=== PATIENT | female | born 1990 | race Caucasian/White ===

== ENCOUNTER 2023-11-21 11:55 | Outpatient (CLI) | payer OTHER, SELFPAY ==
--- NOTE | 2023-11-21 12:04 | ECG_ITS ---
Test Date: 2023-11-21 12:08:35 Measurements Intervals [place] Rate: 47 P: 54 NV: 150 QRS: 69 QRSD: 80 T: 34 QT: 433 QTc: 383 Interpretive Statements SINUS BRADYCARDIA POSSIBLE LEFT ATRIAL ENLARGEMENT POSSIBLE RIGHT VENTRICULAR CONDUCTION DELAY BORDERLINE ST ABNORMALITY- INFERIOR LEADS ABNORMAL ECG No previous ECG available for comparison Electronically Signed On 11-21-2023 12:39:56 CDT by Onur Gonzalez D.O.
== END 2023-11-21 11:56 | disposition home or self-care (01) ==
LOC: ANHCARD 11:58
PROVIDERS: PCP Family Medicine; Visit Provider Student in an Organized Health Care Education/Training Program
DX: R94.31 Abnormal electrocardiogram [ECG] [EKG] (principal)
CPT/HCPCS: 93005

== ENCOUNTER 2024-07-16 00:22 | Day surgery (SDC) | payer BC, SELFPAY ==
[2024-07-04 13:17] VITALS: BMI 21.4
--- NOTE | 2024-07-04 13:24 | SUR.PREOP ---
Report to the Outpatient Waiting Room, entrance under the green pavilion located off [facility], at time _0600_ on date 07/16/24. Planned Procedure Time: 0730.? Time changes happen often and if your time is changed the preop area will call you the afternoon before. - You and your visitor will be asked to self-screen and do not enter if you have any COVID symptoms. Please call surgeon if you need to reschedule. - A mask is optional within the hospital at this time. Patients may have clear liquids (water, carbonated beverages, clear teas, apple juice) until 3 hours prior to surgery with a maximum of 20 ounces. - No food from midnight until time of surgery and no smoking, or chewing tobacco (or any form of nicotine). No chewing gum, candy or mints. - Infants may have breast milk until 4 hours before surgery, formula 6 hours prior to surgery. - Children will be allowed to drink immediately following surgery.? If applicable, please bring a bottle or sippy cup to assist with drinking. Juice, water, soda, and popsicles are readily available.? For infants on formula, please bring formula the day of surgery.? Pacifiers are allowed. Take only the following medications with a SIP of water on the morning of surgery: n/a DO NOT STOP ANY OF YOUR OTHER PRESCRIPTION MEDICATIONS PRIOR TO SURGERY EXCEPT THE FOLLOWING Hold all vitamins and supplements for 3 days per anesthesiologist. Medications to discontinue per physician n/a Date to take last dose Please no make-up, nail citizen of the [place], hairspray, perfume, deodorant, or body powder the day of surgery.? No jewelry (including any body piercings) or valuables the day of surgery, leave them at home.? Please take a shower or bath the night before, or the morning of, surgery with an antibacterial soap.? Wear comfortable, loose fitting clothing.? Children are encouraged to wear pajamas. - Jewelry must be removed prior to entering the operating room.? Rings and piercings that are not removed may be cut off. - The hospital will not accept responsibility for valuables.? - Please leave all valuables, including medications, at home the day of surgery. If you are going home after surgery, a licensed forklift driver must drive you home.? - NO public transportation without another adult if you receive anesthesia. - We recommend that an adult stay with you for 24 hours following discharge. - We also recommend that you do not drive, make important decision, drink alcoholic beverages, or take any drugs that were not prescribed by your health care provider for at least 24 hours after your discharge time. For Pediatric surgeries, we recommend two adults accompany the child home. Follow any additional instructions given to you from your surgeon. Telephone instructions given to __patient___and asked if any additional questions and then verbalized understanding. Patient advised to call surgeon office or pre surgery nurse liaison [phone] if any additional questions.
[2024-07-16] VITALS (11 sets, daily range): BP systolic 84–117; BP diastolic 52–74; PULSE 55–66; RESP 10–20; TEMP 36.3–36.6; O2SAT 96–100; BMI 21.9
--- OUTSIDE RECORDS SUMMARY | 2024-07-16 00:25 | XMS_ITS | Clinical Summary ---
Author Organization [facility] [place] Address [address] [place] [address] Care Team Providers Care Unit Manager Rn Name Role Phone Unavailable Primary Care Provider Unavailabl e Medications No known medications Active Problems No known active problems Encounters Date Type Department Care Team Description 06/11/2024 4:00 PM BOILERMAKER'S ASSISTANT Office Visit [facility] [id number] [phone] Martinez Rivera from Last 3 Months Social History Tobacco Use Types Packs/Day Years Used Date Smoking Tobacco: Never Smokeless Tobacco: Never Tobacco Cessation:Counseling Given: Not Answered Alcohol Use Standard Drinks/Week Comments Not Currently 0 (1 standard drink = 0.6 oz pur e alcohol) Comments Unknown Sex and Gender Information Value Date Recorded Sex Assigned at Not on file Legal Sex Female 7:28 AM PDT Gender Identity Not on file Sexual Orientation Not on file Plan of Treatment Upcoming Encounters Date Type Department Care Team (Late st Contact Info) Description 09/02/2024 1:00 PM CDT Office Visit [facility] [address] [place] [address] Ron Pérez, ZAK [address] [place] [address] Health Maintenance Due Date Last Done Comments Clearance for Orthodontic Treatment 1989 Dental Oral Exam 07/29/2024 01/29/2024 Dental Prophylaxis 07/29/2024 01/29/2024 Dental X-Ray: Bitewings 07/29/2024 01/29/2024 Dental X-Ray: Panoramic 07/31/2024 01/30/20 24, 01/29/2024 Dental X-Ray: Full Mouth 01/30/2027 024, 01/29/2024 Meningococcal B Vaccine Aged Out No l onger eligible based on patient's age to complete this topic Procedures Procedure Name Priority Date/Time Associated Diagnosis Comments PANORAMIC RADIOGRAPHIC IMAGE Routine 01/29/2024 3:30 PM CDT PROPHYLAXIS - ADULT Routine 01/29/2024 3 :30 PM CDT Encounter for dental examination and cleaning without abnormal findings INTRAORAL - COMPREHENSIVE SERIES OF RADIOGRAPHIC IMAGES Routine 01/29/2024 3:30 PM CDT COMPREHENSIVE ORAL EVALUATION - NEW OR ESTABLISHED PATIENT Routine 01/29/2024 3:30 PM CDT Encounter for dental examination and cleaning without abnormal findings from Last 3 Months or Most Recently Relevant to Health Maintenance Insurance [email or web address] [phone]
--- OUTSIDE RECORDS SUMMARY | 2024-07-16 00:25 | XMS_ITS | Clinical Summary ---
Author Organization [facility] Care Team Providers Care Real Time Trader Name Role Phone Unavailable Primary Care Provider Unavailabl e Social History Tobacco Use Types Packs/Day Years Used Date Smoking Tobacco: Never Assessed Comments Unknown Sex and Gender Information Value Date Recorded Sex Assigned at Not on file Legal Sex Female 10:05 PM CDT Gender Identity Not on file Sexual Orientation Not on file Plan of Treatment Health Maintenance Due Date Last Done Comments Hepatitis C Virus (HCV) Screening 1989 TdaP Immunization 1989 Hepatitis B Immunization (1 of 3 - 19+ 3-dose series) 2008 Pap Smear 2010 Cervical Cancer Screening (CCS) 07/16/2019 HPV/Cotest 07/16/2019 Influenza Immunization (#1) 2023 02/18/2020 SARS-COV-2 Immunization ( season) 2023 03/03/2021, 08/11/2020, 07/21/2020 Respiratory Syncytial Virus (RSV) Immunization (Adult) (1 - 1-dose 75+ series) 2064 Meningococcal Immunization (ACWY) Aged Out No longer eligible b ased on patient's age to complete this topic Pneumococcal Immunization Combined Aged Out No longer eligible b ased on patient's age to complete this topic Rotavirus Immunization Aged Out No lo nger eligible based on patient's age to complete this topic
--- OUTSIDE RECORDS SUMMARY | 2024-07-16 00:25 | XMS_ITS | Encounter Summary ---
Author Organization [facility] [place] Address [address] [place] [address] Care Team Providers Care Mixed Signal Design Engineer Name Role Phone Unavailable Primary Care Provider Unavailabl e Prior Encounters Date Type Department Care Team Description 06/11/2024 4:00 PM AUTOMOTIVE PARTS COUNTERPERSON Office Visit [facility] [address] [place] [address] Martinez Rivera 04/05/2024 9:15 AM AUTOMOTIVE PARTS COUNTERPERSON Office Visit [facility] [address] [place] [address] Martinez Rivera 02/16/2024 11:00 AM CDT Office Visit [facility] [address] [place] [address] Martinez Rivera 01/29/2024 3:30 PM CDT Office Visit [facility] [address] [place] [address] Ciara Dean DDS Encounter for dental examination and cleaning without abnormal findings (Primary Dx) Plan of Treatment Upcoming Encounters Date Type Department Care Team (Late st Contact Info) Description 09/02/2024 1:00 PM CDT Office Visit [facility] [address] [place] [address] Ron Pérez DDS [address] [place] [address] Procedures Procedure Name Priority Date/Time Associated Diagnosis Comments IMPRESSION - REPLACEMENT RETAINER Routine 02/16/2024 11:00 AM CDT 2D ORAL/FACIAL PHOTOGRAPHIC IMAGE OBTAINED INTRA-ORALLY OR EXTRA-ORALLY - INITIAL ORTHODONTIC VISIT Routine 02/16/2024 11:00 AM CDT 2D CEPHALOMETRIC RADIOGRAPHIC IMAGE ACQUISITION, MEASUREMENT AND ANALYSIS - INITIAL ORTHODONTIC VISIT Routine 02/16/2024 11:00 AM CDT PANORAMIC RADIOGRAPHIC IMAGE - INITIAL ORTHODONTIC VISIT Routine 02/16/2024 11:00 AM CDT SHIFT COMMANDER CONSULTATION Routine 2023 11:00 AM CDT PROPHYLAXIS - ADULT Routine 01/29/2024 3 :30 PM CDT Encounter for dental examination and cleaning without abnormal findings INTRAORAL PHOTO Routine 01/29/2024 3:30 PM CDT INTRAORAL PHOTO Routine 01/29/2024 3:30 PM CDT INTRAORAL PHOTO Routine 01/29/2024 3:30 PM CDT INTRAORAL PHOTO Routine 01/29/2024 3:30 PM CDT PANORAMIC RADIOGRAPHIC IMAGE Routine 01/29/2024 3:30 PM CDT INTRAORAL - COMPREHENSIVE SERIES OF RADIOGRAPHIC IMAGES Routine 01/29/2024 3:30 PM CDT COMPREHENSIVE ORAL EVALUATION - NEW OR ESTABLISHED PATIENT Routine 01/29/2024 3:30 PM CDT Encounter for dental examination and cleaning without abnormal findings Visit Diagnoses Diagnosis Start Date Encounter for dental examination and cleaning without abnormal findings 01/29/2024 Insurance [facility] [place] [facility] [phone]
[2024-07-16] MEDS: LACTATED RINGERS 1,000 ML 30 ML IV CONT ×3 (06:47→10:06)
[2024-07-16] MEDS: KETOROLAC 15 MG/ML VIAL (*BKC) IV PUSH (06:55)
[2024-07-16] MEDS: ACETAMINOPHEN 500 MG TABLET 1000 MG PO (06:55)
--- NOTE | 2024-07-16 07:07 | WPDANESEPPF ---
Anes - Initial Pre Proc Eval Procedure: Operation Date: 07/16/24 07:30 Proposed Procedures p Laparoscopic Right Ovarian Cystectomy - Anton Zelaya MD Date/Time: 07/16/24 07:07 Surgeon: Anton Zelaya MD Pre Op Diagnosis: Cyst of Right Ovary Patient Data Age: 34 Gender: F Height: 1.63 m Weight: 56.7 kg Allergies Allergy/AdvReac Type Severity Reaction Status Date / Time No Known Allergies Allergy Unknown Verified 07/04/24 13:26 Home Medications ?Medication ?Instructions ?Recorded ?Confirmed ?Type No Home Medications 11/21/23 07/04/24 History Patient hx anesthesia problems: none Family hx anesthesia problems: none Results Review: All pre-operative results and documents have been reviewed as part of the pre-operative evaluation. [facility] Past Medical History Medical History Well female exam with routine gynecological exam Social anxiety disorder Major depressive disorder, single episode, unspecified FH: diabetes mellitus Exercise-induced asthma Anxiety Surgical History Surgical History [place] teeth extracted Family History Family History Mother Patient's mother is in good health Breast cancer Diabetes mellitus Father Patient's father is in good health Hyperlipidemia Social History Social History Smoking status: Never smoker Second hand tobacco smoke exposure: No Alcohol intake: current Drinks per week: 3 Substance use: never Substance use type: does not use Living arrangements: with family Anes - Eval Final PreProcedure Day of Procedure 07/16/24 07:07 Patient weight: normal Heart: regular rate and rhythm Lungs: clear to auscultation Airway: Mallampati scale class II Neurological: alert and oriented Last oral intake: >/= 8 hours ASA classification: II Emergent: no Anesthetic plan: proceed Anesthesia type and monitoring: general ETT and standard monitoring Results Review: All pre-operative results and documents have been reviewed as part of the pre-operative evaluation. Informed Consent: The patient's anesthetic plan and its attendant risks and benefits were discussed with the patient/family/POA. Questions were solicited and answers provided to the satisfaction of the patient/family/POA.
--- NOTE | 2024-07-16 07:10 | PM.IMHP ---
H&P: HPI History of Present Illness Date/Time: 07/16/24 07:10 Chief Complaint: Pelvic pain Narrative: This patient is a 34-year-old female with pelvic pain and right ovarian cyst. We agreed to perform laparoscopic right ovarian cystectomy. The patient understands the details of the procedure. The procedure has been explained in detail. She understands the risks. She understands that injuries may occur that result in hospitalization, more surgery, and severe illness. She understands risk of hemorrhage and infection. She denies any chest pain or shortness of breath. She denies any nausea, vomiting, fever, chills. Review of Systems Review of Systems: All systems reviewed & are unremarkable except as noted in HPI and below Constitutional: Constitutional: Denies chills, Denies fatigue, Denies fever(s) and Denies weakness Eyes: Eyes: Denies blurry vision, Denies change in vision, Denies loss of peripheral vision, Denies loss of vision, Denies other visual disturbances and Denies eye pain ENT: Denies vertigo, Denies dizziness, Denies hearing loss, Denies mouth pain, Denies nasal obstruction, Denies neck mass and Denies neck pain Cardiovascular: Cardiovascular: Denies chest pain, Denies diaphoresis, Denies syncope, Denies leg edema and Denies dyspnea Respiratory: Respiratory: Denies chest congestion, Denies cough, Denies hemoptysis, Denies dyspnea and Denies wheezing Gastrointestinal: Gastrointestinal: Denies abdominal pain, Denies constipation, Denies diarrhea, Denies nausea and Denies vomiting Genitourinary: Genitourinary: Denies hematuria, Denies change in libido, Denies nocturia, Denies genital lesions, Denies flank pain and Denies urinary urgency Musculoskeletal: Musculoskeletal: Denies abnormal gait, Denies back pain, Denies myalgias, Denies arthralgias, Denies joint swelling, Denies muscle weakness and Denies neck pain Integumentary/Breasts: Skin/Breast: Denies swelling, Denies breast pain, Denies breast mass, Denies dry skin, Denies nipple discharge, Denies unusual bruising and Denies jaundice Neurologic: Denies Neuro-related abnormal movements, Denies Abnormal speech present, Denies abnormal gait, Denies behavioral changes, Denies confusion, Denies vertigo, Denies dizziness, Denies syncope, Denies loss of vision, Denies memory loss, Denies convulsions and Denies weakness Psychiatric: Psychiatric: Denies abnormal sleep pattern, Denies behavioral changes, Denies change in libido, Denies confusion, Denies depression, Denies anhedonia and Denies memory loss Endocrine: Endocrine: Reports no additional endocrine complaints, Denies change in libido and Denies fatigue Hematologic/Lymphatic: Hematologic/Lymphatic: Reports no additional hematologic/lymphatic complaints Allergic/Immunologic: Allergic/Immunologic: Reports no additional allergic/immunologic complaints and Denies wheezing PMFSH Past Medical History Medical History Well female exam with routine gynecological exam Social anxiety disorder Major depressive disorder, single episode, unspecified FH: diabetes mellitus Exercise-induced asthma Anxiety Surgical History Surgical History [place] teeth extracted Family History Family History Mother Patient's mother is in good health Breast cancer Diabetes mellitus Father Patient's father is in good health Hyperlipidemia Social History Social History Smoking status: Never smoker Second hand tobacco smoke exposure: No Alcohol intake: current Drinks per week: 3 Substance use: never Substance use type: does not use Living arrangements: with family Meds Home Medications and Allergies Home Medications ?Medication ?Instructions ?Recorded ?Confirmed ?Type No Home Medications 11/21/23 07/04/24 History Allergies Allergy/AdvReac Type Severity Reaction Status Date / Time No Known Allergies Allergy Unknown Verified 07/04/24 13:26 Exam Const: General: cooperative, healthy appearing, comfortable and no acute distress Orientation/consciousness: oriented to person, oriented to place and oriented to time HENMT: Head: normal to inspection Ears: external ears normal Face/Nose/Sinus: Normal external nose present and normal facial exam Face and sinus: normal facial exam Eyes: General: appearance normal, both eyes and all related structures Neck: Neck: normal visual inspection, trachea midline and supple Resp: Auscultation: clear to auscultation bilaterally, no crackles, no rales, no rhonchi and no wheezes Cardio: Rate: regular rate Rhythm: regular rhythm Heart sounds: no click, no murmurs and no rubs GI: GI Palp: No abdominal tenderness, No Soft to palpation, No Tenderness to palpation present (GI) and No Palpable mass present Auscultation: normal bowel sounds Skin: General skin exam: normal color and no rashes or lesions noted Neuro: General: oriented to person, oriented to place and oriented to time Extrem: General: normal to inspection, no joint enlargement, no clubbing, cyanosis or edema, no pedal edema and no calf tenderness Psych: Appearance: grossly normal Mental Status: mental status grossly normal Speech and movement: Normal speech and movement present Assessment and Plan Assessment and plan (1) Pelvic pain: Code(s): R10.2 - Pelvic and perineal pain Status: Acute (2) Ovarian cyst: Code(s): N83.209 - Unspecified ovarian cyst, unspecified side Status: Acute Plan This patient is a 34-year-old female with ovarian cyst and pelvic pain. We agreed to perform laparoscopic right ovarian cystectomy. She understands risks, benefits, and alternatives. She has completed informed consent process is ready to proceed.
--- NOTE | 2024-07-16 07:27 | WPDHPUPDATE1 ---
History and Physical Update Update Date/Time: 07/16/24 07:27 History and Physical has been reviewed, including an updated exam of the patient. There are NO changes in the patient's condition. Risks, benefits, and alternatives have been discussed and questions answered. Patient agrees to proceed with procedure.
[2024-07-16 07:35] LABS: BEDSIDEPREGUCG Negative (Negative)
[2024-07-16] MEDS: METHYLENE BLUE 0.5% INJ 10 ML AMPULE 20 ML IRRIGATION (08:53)
--- NOTE | 2024-07-16 09:07 | W.PM.PROC2 ---
Procedure Note - Detailed Date of Procedure 07/16/24 Pre-op Diagnosis Cyst of Right Ovary Post-op Diagnosis Same (Endometriosis, bilateral endometrioma) Procedure Performed Diagnostic laparoscopy Surgeon Anton Zelaya MD Anesthesia General Indications Pelvic pain Findings Large endometrial implant in the parametrium posterior cervical an adnexal surface. Bilateral endometrioma, patent fallopian tubes Description of Procedure The patient was taken to the operating room. She was prepped and draped in the dorsal lithotomy position after induction general anesthesia. A 5 mm incision was made with a scalpel on the abdominal skin in the left upper quadrant of the abdomen. A 5 mm trocar was inserted into the intra-abdominal cavity under direct visualization the scope. In the same fashion a 5 mm left lower quadrant trocar was inserted and a 5 mm infraumbilical trocar was inserted. Bilateral ovarian cystectomy of endometrioma. The cystic stepped knees were done with sharp and blunt dissection using cautery and scissors and LigaSure cautery. Wedge resections were made of the cyst capsule. Cyst surfaces were cauterized and removed. Large endometrial implant at the parametrial tissue extended into the posterior cervix surface was resected using sharp and blunt dissection in cautery with scissors and LigaSure cautery. Area was irrigated and covered with Interceed. The pelvis was irrigated. The pneumoperitoneum was reduced. The trocars were removed. Skin was closed with subcuticular 4 micro. The patient's incisions were covered with Dermabond. She was taken recovery room in stable condition. Sponge lap and needle counts were correct x2. Estimated Blood Loss 25 Pathology Yes Complications No immediate complications Condition Stable Disposition Same day
--- NOTE | 2024-07-16 09:39 | SUR.OPER ---
Dr. Zelaya injected Methylene Blue into the Uterus/Fallopian tubes through the Eugenia Tip
[2024-07-16] MEDS: ONDANSETRON INJ 4 MG/2 ML VIAL IV PUSH (10:13)
[2024-07-16] MEDS: diphenhydrAMINE HCl INJ 50 MG/ML VIAL 25 MG IV PUSH (10:27)
[2024-07-16] MEDS: SCOPOLAMINE 1 MG PATCH 1 PATCH TRANSDERM (10:28)
[2024-07-16] MEDS: oxyCODONE HCL (*CRX) 5 MG TAB IR PO (11:38)
== END 2024-07-16 11:55 | disposition home or self-care (01) ==
PROVIDERS: PCP Family Medicine; Visit Provider Obstetrics & Gynecology
PROC: (CPT 49320; principal; 2024-07-16 07:30)
DX: N80.103 Endometriosis of bilateral ovaries, unspecified depth (principal); N80.399 Endometriosis of the pelvic peritoneum, other specified sites, unspecified depth
CPT/HCPCS: 58662; 88305; A9270; J1100; J1200; J1885; J2003; J2250; J2405; J2704; J3010; J7030; J7120; Q9968

== ENCOUNTER 2024-12-18 08:11 | Outpatient (CLI) | payer BC, SELFPAY ==
--- NOTE | ~2024-12-18 | MMUS_ITS ---
EXAMINATION: MM diagnostic linh BI w lashay, US breast BI complete HISTORY: 34-year-old woman with a significant family history of breast cancer (diagnosed in the patient's mother at age 55) with a palpable abnormality (thickening) at the 3:00 position of the lateral left breast, felt by patient's clinician) presents for diagnostic evaluation. TECHNIQUE: Craniocaudal and mediolateral oblique 3-D tomosynthesis images were obtained and synthetic 2-D images were generated. CAD analysis was submitted and interpreted. High resolution bilateral complete breast ultrasound was performed. COMPARISON: None BREAST PARENCHYMAL COMPOSITION: Dense: The breasts are extremely dense, which lowers the sensitivity of mammography. FINDINGS: MAMMOGRAPHIC FINDINGS: Punctate calcifications are detected bilaterally, dermal in origin and morphologically benign in appearance. Otherwise benign parenchymal pattern, without suspicious microcalcifications, architectural distortion, discrete masses or significant asymmetry ULTRASOUND: Extremely dense breast tissue detected bilaterally. Multiple morphologically benign, nonpathologically enlarged lymph nodes detected within the bilateral axilla. At the 2:00 position of the left breast approximately 3 cm from the nipple is an avascular, nonshadowing bilobed focus of decreased echogenicity measuring 9.1 x 4.4 x 10.7 mm for which short-term sonographic follow-up is recommended. At the 2:00 position of the left breast approximately 2 cm from the nipple is a well-circumscribed anechoic avascular focus consistent with a simple cyst for which no further follow-up is needed. At the 9:00 position of the left breast approximately 2 cm from the nipple is an irregular, avascular focus of decreased echogenicity measuring 6.2 x 3.0 x 8.5 mm, which on cine view fades into the surrounding breast parenchyma, for which no further follow-up is needed. IMPRESSION: Findings at the 2:00 position of the left breast approximately 3 cm from the nipple for which short-term ultrasound follow-up is recommended. Given the significant family history of breast cancer, would recommend calculation of the patient's Tyrer Yadi score in order to supplement patient's high risk screening with contrast-enhanced MRI. In the absence of supplemental dynamic breast MRI, repeat ultrasound evaluation in 6 months is recommended. BI-RADS category 3, probably benign findings. Reviewed, dictated and finalized at location A. IMPRESSION: Findings at the 2:00 position of the left breast approximately 3 cm from the n ipple for which short-term ultrasound follow-up is recommended. Given the significant family history of breast cancer, would recommend calculat ion of the patient's Tyrer Yadi score in order to supplement patient's high risk screening with contrast-enhanced MRI. In the absence of supplemental dynamic breast MRI, repeat ultrasound evaluation in 6 months is recommended. BI-RADS category 3, probably benign findings. IMPRESSION: Findings at the 2:00 position of the left breast approximately 3 cm from the n ipple for which short-term ultrasound follow-up is recommended. Given the significant family history of breast cancer, would recommend calculat ion of the patient's Tyrer [place] score in order to supplement patient's high risk screening with contrast-enhanced MRI. In the absence of supplemental dynamic breast MRI, repeat ultrasound evaluation in 6 months is recommended. BI-RADS category 3, probably benign findings.
== END 2024-12-18 08:12 | disposition home or self-care (01) ==
LOC: MICIMG 08:11
PROVIDERS: PCP Family Medicine; Visit Provider Nurse Practitioner
DX: N63.21 Unspecified lump in the left breast, upper outer quadrant (principal); Z80.3 Family history of malignant neoplasm of breast
CPT/HCPCS: 76641; 77062; 77066; G0279